=== PATIENT | female | born 1955 | race Caucasian/White ===

== ENCOUNTER 2024-01-22 11:38 | Day surgery (SDC) | payer MEDICARE ==
[2024-01-19 13:35] LABS: BASOPHILS % (AUTO) 0.6 % (0-1); EOSINOPHILS # (AUTO) 0.2 X10'3 (0-0.9); EOSINOPHILS % (AUTO) 2.9 % (0-6); HEMOGLOBIN 12.8 g/dl (12.0-16.0); LYMPHOCYTES # (AUTO) 1.9 X10'3 (1.1-4.8); LYMPHOCYTES % (AUTO) 30.8 % (21-51); MEAN CORPUSCULAR HEMOGLOBIN 32.8 PG (27.0-31.0); MEAN CORPUSCULAR HGB CONC 33.6 g/dL (33.0-36.5); MEAN CORPUSCULAR VOLUME 97.6 FL (78-98); MEAN PLATELET VOLUME 7.7 FL (7.4-10.4); MONOCYTES # (AUTO) 0.7 X10'3 (0-0.9); MONOCYTES % (AUTO) 11.1 % (2-12); NEUTROPHILS # (AUTO) 3.4 X10'3 (1.8-7.7); NEUTROPHILS % (AUTO) 54.6 % (42-75); PLATELET COUNT 241 X10'3 (140-440); RED BLOOD COUNT 3.89 X10'6 (4.20-5.60); RED CELL DISTRIBUTION WIDTH 12.7 % (11.5-14.5); WHITE BLOOD COUNT 6.3 X10'3 (4.5-11.0)
[2024-01-19 13:50] LABS: APTT 30 SECONDS (22-32); PROTHROMBIN TIME 10.1 SECONDS (9.0-12.0)
[2024-01-19 13:52] LABS: ALBUMIN 4.1 G/DL (3.4-5.0); ANION GAP 8 (8-16); BLOOD UREA NITROGEN 8 MG/DL (7-18); BUN/CREATININE RATIO 10.8 (10.0-20.0); CALCIUM 9.4 MG/DL (8.5-10.1); CHLORIDE 100 MMOL/L (99-107); CHOL/HDL RATIO 2.3 (0.00-4.99); CHOLESTEROL 157 MG/DL (0-200); CREATININE 0.74 MG/DL (0.40-0.90); GLUCOSE 86 MG/DL (70-104); HDL CHOLESTEROL 68 MG/DL (35-60); LDL CHOLESTEROL 78 MG/DL (50-100); POTASSIUM 4.4 MMOL/L (3.5-5.1); SODIUM 136 MMOL/L (135-145); TOTAL CARBON DIOXIDE 27.6 MMOL/L (24-32); TRIGLYCERIDES 48 MG/DL (20-135); eGFR 77 ML/MIN
[2024-01-22] VITALS (9 sets, daily range): BP systolic 127–168; BP diastolic 49–108; PULSE 68–79; RESP 14–22; TEMP 99.7; O2SAT 96–98
[~2024-01-22] VITALS: Ht 160 cm; Wt 61.8 kg
[2024-01-22] MEDS ORDERED: normal saline 1,000 ML IV SCH (11:55)
[2024-01-22] MEDS ORDERED: ROSU40TA22 PO (12:14)
[2024-01-22] MEDS ORDERED: LOSA25TA41 PO (12:14)
[2024-01-22] MEDS ORDERED: METO25TA6 PO (12:14)
[2024-01-22] MEDS: diphenhydrAMINE 25mg capsule PO PRN (12:38)
[2024-01-22] MEDS: LORazepam 0.5 MG tablet PO PRN (12:38)
[2024-01-22] MEDS ORDERED: midazolam 1 mg/ML 2ml injection ONE ×2 (13:45→14:30)
[2024-01-22] MEDS ORDERED: heparin 1,000unit/ml 10ml vial 10 ML ONE (13:45)
[2024-01-22] MEDS ORDERED: fentaNYL/PF 50MCG/1 ML 2ML syringe ONE (13:45)
[2024-01-22] MEDS ORDERED: verapamil 2.5 mg/ml inj IV ONE (13:45)
[2024-01-22] MEDS ORDERED: nitroGLYCERIN 500mcg/5mL D5W 5 ML IV ONE (13:46)
[2024-01-22] MEDS ORDERED: iohexol 350MG/ML 100ml bottle IV ONE (13:46)
[2024-01-22] MEDS ORDERED: LIDOcaine 1% (10mg/ml) 2ml vial ONE (13:56)
[2024-01-22] MEDS ORDERED: LIDOcaine 1% 30ml preserv. free vial ONE (14:26)
[2024-01-22 15:22] LABS: ISTAT HGB ART 11.6 g/dl (12.0-16.0); ISTAT Hct ART 34 %PCV (35-45); ISTAT O2 SATURATION ARTERIAL 94 % (95-98); ISTAT SOURCE ART
[2024-01-22] MEDS ORDERED: HYDROcodone/acetaminophen 5mg/325mg tablet PO PRN (15:25)
[2024-01-22] MEDS ORDERED: HYDROcodone/acetaminophen 10/325mg tab PO PRN (15:25)
[2024-01-23 06:31] LABS: ISTAT HGB MIX 12.2 g/dl (12.0-16.0); ISTAT Hct MIX 36 %PCV (35-45); ISTAT O2 SATURATION MIX VENOUS 65 % (60-80); ISTAT SOURCE BLNK
== END 2024-01-22 17:05 | disposition home or self-care (01) ==
LOC: SSTAY O 11:38
PROVIDERS: ATTEND Student in an Organized Health Care Education/Training Program
DX: I35.0 Nonrheumatic aortic (valve) stenosis (principal); I49.3 Ventricular premature depolarization; I10 Essential (primary) hypertension; E78.00 Pure hypercholesterolemia, unspecified; I42.9 Cardiomyopathy, unspecified; Z79.899 Other long term (current) drug therapy
CPT/HCPCS: 36415; 80048; 80061; 82803; 85014; 85025; 85610; 85730; 93005; 93460; 99152; 99153; A6258; A6402; C1751; C1887; C1894; J1644; J2001; J2250; J3010; J3490; J7030; Q0163; Q9967; Z7610; A6449

== ENCOUNTER 2024-02-26 11:19 | Outpatient (CLI) | payer MEDICARE, BC ==
[~2024-02-26 11:19] MED LIST: LOSA25TA41 PO; METO25TA6 PO; ROSU40TA71 PO
[2024-02-26] MEDS ORDERED: IODIXANOL 320 MG/ML INFUS..BTL 100ML IV ONE ×2 (11:48)
[2024-02-26 11:57] LABS: BASOPHILS % (AUTO) 0.6 % (0-1); EOSINOPHILS # (AUTO) 0.1 X10'3 (0-0.9); EOSINOPHILS % (AUTO) 1.7 % (0-6); HEMOGLOBIN 12.5 g/dl (12.0-16.0); LYMPHOCYTES # (AUTO) 1.2 X10'3 (1.1-4.8); LYMPHOCYTES % (AUTO) 20.9 % (21-51); MEAN CORPUSCULAR HEMOGLOBIN 32.5 PG (27.0-31.0); MEAN CORPUSCULAR HGB CONC 33.9 g/dL (33.0-36.5); MEAN CORPUSCULAR VOLUME 95.9 FL (78-98); MEAN PLATELET VOLUME 7.5 FL (7.4-10.4); MONOCYTES # (AUTO) 0.6 X10'3 (0-0.9); MONOCYTES % (AUTO) 10.4 % (2-12); NEUTROPHILS # (AUTO) 3.7 X10'3 (1.8-7.7); NEUTROPHILS % (AUTO) 66.4 % (42-75); PLATELET COUNT 219 X10'3 (140-440); RED BLOOD COUNT 3.86 X10'6 (4.20-5.60); WHITE BLOOD COUNT 5.6 X10'3 (4.5-11.0)
[2024-02-26 12:08] LABS: APTT 30 SECONDS (22-32)
[2024-02-26 12:11] LABS: INR 0.9 INR
[2024-02-26 12:16] LABS: ALANINE AMINOTRANSFERASE 28 U/L (12-78); ALBUMIN 3.8 G/DL (3.4-5.0); ALBUMIN/GLOBULIN RATIO 0.9 (1.1-1.5); ALKALINE PHOSPHATASE 74 IU/L (46-116); ANION GAP 7 (8-16); ASPARTATE AMINO TRANSFERASE 42 U/L (10-37); BILIRUBIN,TOTAL 0.5 MG/DL (0.1-1.0); BLOOD UREA NITROGEN 7 MG/DL (7-18); BUN/CREATININE RATIO 9.9 (10.0-20.0); CALCIUM 8.8 MG/DL (8.5-10.1); CHLORIDE 98 MMOL/L (99-107); CREATININE 0.71 MG/DL (0.40-0.90); GLUCOSE 77 MG/DL (70-104); POTASSIUM 4.6 MMOL/L (3.5-5.1); PRO BRAIN NATRIURETIC PEPTIDE 1214 PG/ML (0-125); SODIUM 132 MMOL/L (135-145); TOTAL CARBON DIOXIDE 27.4 MMOL/L (24-32); TOTAL PROTEIN 7.9 G/DL (6.4-8.2); eGFR 81 ML/MIN
== END 2024-02-26 23:59 | disposition home or self-care (01) ==
LOC: RAD 11:19
PROVIDERS: ATTEND Internal Medicine Cardiovascular Disease
DX: D25.9 Leiomyoma of uterus, unspecified (principal); K40.90 Unilateral inguinal hernia, without obstruction or gangrene, not specified as recurrent; R91.8 Other nonspecific abnormal finding of lung field; I34.81 Nonrheumatic mitral (valve) annulus calcification; I35.0 Nonrheumatic aortic (valve) stenosis; R06.02 Shortness of breath; I65.29 Occlusion and stenosis of unspecified carotid artery
CPT/HCPCS: 36415; 71046; 71275; 74174; 75572; 80053; 83880; 85025; 85610; 85730; Q9967

== ENCOUNTER 2024-04-25 06:05 | Inpatient (IN) | payer MEDICARE, BC ==
[2024-04-17 14:16] LABS: BILIRUBIN,URINE NEGATIVE (Neg); CLARITY,URINE SLIGHTLY CLOUDY (Clear); COLOR,URINE YELLOW (Yellow); GLUCOSE, URINE NEGATIVE (Neg); KETONES,URINE NEGATIVE (Neg); LEUKOCYTE ESTERASE ,URINE NEGATIVE (Neg); NITRITES, URINE NEGATIVE (Neg); OCCULT BLOOD,URINE TRACE-INTACT (Neg); PH,URINE 6.5 (4.8-8.0); PROTEIN,URINE NEGATIVE (Neg); UROBILINOGEN,URINE 0.2 E.U/dL (0.2-1.0)
[2024-04-17 14:16] LABS: BASOPHILS % (AUTO) 0.6 % (0-1); EOSINOPHILS # (AUTO) 0.2 X10'3 (0-0.9); EOSINOPHILS % (AUTO) 3.2 % (0-6); LYMPHOCYTES # (AUTO) 1.6 X10'3 (1.1-4.8); LYMPHOCYTES % (AUTO) 28.7 % (21-51); MEAN CORPUSCULAR HEMOGLOBIN 32.5 PG (27.0-31.0); MEAN CORPUSCULAR HGB CONC 33.5 g/dL (33.0-36.5); MEAN CORPUSCULAR VOLUME 97.3 FL (78-98); MEAN PLATELET VOLUME 7.7 FL (7.4-10.4); MONOCYTES # (AUTO) 0.6 X10'3 (0-0.9); MONOCYTES % (AUTO) 11.6 % (2-12); NEUTROPHILS # (AUTO) 3.1 X10'3 (1.8-7.7); NEUTROPHILS % (AUTO) 55.9 % (42-75); PRE OP HEMATOCRIT 38.7 % (35.0-45.0); PRE OP PLATELET COUNT 259 X10'3 (140-440); PRE OP WHITE BLOOD COUNT 5.5 10'3 (4.8-10.8); RED BLOOD COUNT 3.98 X10'6 (4.20-5.60); RED CELL DISTRIBUTION WIDTH 13.8 % (11.5-14.5)
[2024-04-17 14:21] LABS: SQUAMOUS EPITHELIAL CELL,UR FEW /LPF (FEW); UA COLLECTION TYPE CLN CATCH MIDSTREAM
[2024-04-17 14:22] LABS: BACTERIA,URINE NONE SEEN /HPF (Neg); WBC,URINE 0-4 /HPF (0-4)
[2024-04-17 14:29] LABS: PRE OP PROTIME 10.2 SECONDS (9.0-12.0)
[~2024-04-25] VITALS: Ht 160 cm; Wt 63.6 kg
[2024-04-25] VITALS (41 sets, daily range): BP systolic 108–200; BP diastolic 47–111; PULSE 62–104; RESP 10–22; TEMP 97.1–99.4; O2SAT 82–100
[~2024-04-25 06:05] MED LIST changes: +DOCUMENT DATE & TIME OF BETA-BLOCKER PO ONE; +cefazolin 2gm/D5W 100mL 100 ML IV ONE; +nitroPRUSSIDE (NIPRIDE) (200MCG/ML) 100ML Drip IV SCH; +phenylephrine inj 50 MG in normal saline 250ml IV solN IV SCH; +ringers solution, lacted 1,000 ML IV SCH
[2024-04-25] MEDS ORDERED: protamine sulfate 10mg/ml inj. ONE (06:35)
[2024-04-25] MEDS: famotidine 20mg tablet PO ONE (06:45)
[2024-04-25] MEDS: vancomycin/NS 1 GM in NS 250 ML IV ONE (06:46)
[2024-04-25] MEDS: aspirin 325mg tablet PO ONE (06:47)
[2024-04-25] MEDS: dextrose 5%-lactated ringers 1,000 ML IV SCH (07:26)
[2024-04-25] MEDS ORDERED: proCHLORperazine 10 MG/2 ml inj IV PRN ×2 (07:30→09:50)
[2024-04-25] MEDS ORDERED: ondansetron/PF 4mg/2ml inj IV PRN ×2 (07:30→09:50)
[2024-04-25] MEDS ORDERED: morphine 2 MG/ML inj. syringe IV PRN (07:30)
[2024-04-25] MEDS ORDERED: ringers solution, lacted 1,000 ML IV SCH (07:30)
[2024-04-25] MEDS ORDERED: meperidine/PF 25mg/ml syringe IV PRN ×3 (07:30)
[2024-04-25] MEDS ORDERED: morphine 4 MG/ML inj SYRINge IV PRN (07:30)
[2024-04-25 07:40] LABS: ALANINE AMINOTRANSFERASE 23 U/L (12-78); ALBUMIN 3.8 G/DL (3.4-5.0); ALBUMIN/GLOBULIN RATIO 0.9 (1.1-1.5); ALKALINE PHOSPHATASE 75 IU/L (46-116); ANION GAP 9 (8-16); ASPARTATE AMINO TRANSFERASE 41 U/L (10-37); BILIRUBIN,TOTAL 0.4 MG/DL (0.1-1.0); BLOOD UREA NITROGEN 7 MG/DL (7-18); BUN/CREATININE RATIO 8.8 (10.0-20.0); CALCIUM 8.9 MG/DL (8.5-10.1); CHLORIDE 103 MMOL/L (99-107); GLUCOSE 81 MG/DL (70-104); POTASSIUM 4.3 MMOL/L (3.5-5.1); PRO BRAIN NATRIURETIC PEPTIDE 2026 PG/ML (0-125); SODIUM 138 MMOL/L (135-145); TOTAL CARBON DIOXIDE 25.9 MMOL/L (24-32); TOTAL PROTEIN 7.9 G/DL (6.4-8.2); eCRCL 53 ML/MIN; eGFR 71 ML/MIN
[2024-04-25] MEDS ORDERED: LIDOcaine 1% (10mg/ml) 2ml vial ONE (08:05)
[2024-04-25] MEDS ORDERED: iohexol 350MG/ML 100ml bottle IV ONE (08:12)
[2024-04-25] MEDS ORDERED: heparin 1,000 UNITS/NS 500ml 1,500 ML ONE (08:12)
[2024-04-25] MEDS ORDERED: sevoflurane 250ml liquid IH ONE (08:36)
[2024-04-25] MEDS ORDERED: fentaNYL/PF 50MCG/1 ML 2ML syringe ONE (08:41)
[2024-04-25] MEDS ORDERED: heparin 1,000unit/ml 10ml vial 10 ML ONE (08:49)
[2024-04-25] MEDS ORDERED: propofol inj 20 ML IV ONE (08:49)
[2024-04-25] MEDS ORDERED: ALPRAZolam 0.25mg tablet PO PRN (09:50)
[2024-04-25] MEDS ORDERED: pantoprazole 40mg Tablet.DR PO PRN (09:50)
[2024-04-25] MEDS ORDERED: potassium Cl 40MEQ/1/2NS 520ml 520 ML IV PRN (09:50)
[2024-04-25] MEDS ORDERED: docusate sod 100mg capsule PO PRN (09:50)
[2024-04-25] MEDS ORDERED: magnesium sulf-water 4G/100mL 100 ML IV PRN (09:50)
[2024-04-25] MEDS ORDERED: labetalol 20mg/4ml (5mg/ml) syringe IV PRN (09:50)
[2024-04-25] MEDS ORDERED: potassium Cl 20mEq/100mL bag 100 ML IV PRN (09:50)
[2024-04-25] MEDS ORDERED: HYDROcodone/acetaminophen 5mg/325mg tablet PO PRN (09:50)
[2024-04-25] MEDS ORDERED: potassium CL 10mEq/100ml bag 100 ML IV PRN (09:50)
[2024-04-25] MEDS ORDERED: potassium Cl 20 mEq SR tablet PO PRN (09:50)
[2024-04-25] MEDS ORDERED: magnesium sulf-water 2g/50mL 50 ML IV PRN (09:50)
[2024-04-25] MEDS ORDERED: diphenhydrAMINE 25mg capsule PO PRN (09:50)
[2024-04-25] MEDS ORDERED: potassium Cl 40MEQ/270ML bag 250 ML IV PRN (09:50)
[2024-04-25] MEDS: hydrALAZINE 20mg/ml inj. IV PRN (13:41)
[2024-04-25] MEDS: normal saline 1000ml 1,000 ML IV SCH (13:41)
[2024-04-25] MEDS: ondansetron/PF 4mg/2ml inj IV PRN (14:02)
[2024-04-25] MEDS: acetaminophen 325mg tablet PO PRN (15:00)
[2024-04-25] MEDS: ceFAZolin 1GM/D5W- ADD-VANTAGE 50 ML IV SCH (16:38)
[2024-04-25] MEDS: sod chloride 0.9% 10ml flush syringe IV SCH (16:39)
[2024-04-25] MEDS: metoprolol tartrate 25mg tablet PO SCH (21:41)
[2024-04-25] MEDS: vancomycin/NS 1 GM ADD-VANTAGE 250 ML IV SCH (21:41)
[2024-04-26 02:00] VITALS: BP 140/53; PULSE 84; RESP 17; TEMP 99; O2SAT 98
[2024-04-26 06:00] VITALS: BP 155/65; PULSE 84; RESP 14; TEMP 98; O2SAT 97
[2024-04-26] MEDS: aspirin 81mg tab.chew PO SCH (07:30)
[2024-04-26] MEDS: losartan 25mg tablet PO SCH (07:31)
[2024-04-26] MEDS: ROSUVASTATIN CALCIUM 5 MG TABLET PO SCH (07:32)
[2024-04-26 08:07] LABS: BASOPHILS % (AUTO) 0.1 % (0-1); EOSINOPHILS # (AUTO) 0.2 X10'3 (0-0.9); EOSINOPHILS % (AUTO) 2.6 % (0-6); HEMATOCRIT 29.5 % (35.0-45.0); LYMPHOCYTES % (AUTO) 15.2 % (21-51); MEAN CORPUSCULAR HEMOGLOBIN 33.1 PG (27.0-31.0); MEAN CORPUSCULAR HGB CONC 33.8 g/dL (33.0-36.5); MEAN CORPUSCULAR VOLUME 97.9 FL (78-98); MEAN PLATELET VOLUME 8.5 FL (7.4-10.4); MONOCYTES # (AUTO) 0.6 X10'3 (0-0.9); MONOCYTES % (AUTO) 9.2 % (2-12); NEUTROPHILS % (AUTO) 72.9 % (42-75); PLATELET COUNT 143 X10'3 (140-440); RED BLOOD COUNT 3.01 X10'6 (4.20-5.60); RED CELL DISTRIBUTION WIDTH 13.3 % (11.5-14.5); WHITE BLOOD COUNT 6.8 X10'3 (4.5-11.0)
[2024-04-26 08:32] LABS: ALANINE AMINOTRANSFERASE 22 U/L (12-78); ALBUMIN 2.9 G/DL (3.4-5.0); ALBUMIN/GLOBULIN RATIO 0.9 (1.1-1.5); ALKALINE PHOSPHATASE 52 IU/L (46-116); ANION GAP 7 (8-16); ASPARTATE AMINO TRANSFERASE 44 U/L (10-37); BILIRUBIN,TOTAL 0.7 MG/DL (0.1-1.0); BLOOD UREA NITROGEN 6 MG/DL (7-18); BUN/CREATININE RATIO 7.5 (10.0-20.0); CALCIUM 7.8 MG/DL (8.5-10.1); CHLORIDE 105 MMOL/L (99-107); GLUCOSE 82 MG/DL (70-104); MAGNESIUM 1.9 MG/DL (1.5-2.4); POTASSIUM 3.6 MMOL/L (3.5-5.1); PRO BRAIN NATRIURETIC PEPTIDE 3842 PG/ML (0-125); SODIUM 137 MMOL/L (135-145); TOTAL CARBON DIOXIDE 25.4 MMOL/L (24-32); TOTAL PROTEIN 6.2 G/DL (6.4-8.2); eCRCL 53 ML/MIN; eGFR 71 ML/MIN
[2024-04-26 11:00] VITALS: BP 127/99; PULSE 72; RESP 15; TEMP 97.6; O2SAT 98
[2024-04-26] MEDS ORDERED: ASPI81TA53 PO (15:55)
== END 2024-04-26 16:41 | disposition home or self-care (01) | DRG 266 ==
LOC: PAS IN 06:05 → PCU 3S 12:44
PROVIDERS: ADMIT Internal Medicine Cardiovascular Disease; ATTEND Internal Medicine Cardiovascular Disease
PROC: 027F3ZZ Dilation of Aortic Valve, Percutaneous Approach (ICD-10-PCS; 2024-04-25)
PROC: B41DZZZ Fluoroscopy of Aorta and Bilateral Lower Extremity Arteries (ICD-10-PCS; 2024-04-25)
PROC: 03HY32Z Insertion of Monitoring Device into Upper Artery, Percutaneous Approach (ICD-10-PCS; 2024-04-25)
PROC: 02RF38Z Replacement of Aortic Valve with Zooplastic Tissue, Percutaneous Approach (ICD-10-PCS; principal; 2024-04-25 08:36)
DX: I35.0 Nonrheumatic aortic (valve) stenosis (principal); Z00.6 Encounter for examination for normal comparison and control in clinical research program; I50.33 Acute on chronic diastolic (congestive) heart failure; I11.0 Hypertensive heart disease with heart failure; E78.00 Pure hypercholesterolemia, unspecified; Z79.899 Other long term (current) drug therapy
CPT/HCPCS: 33361; 36415; 71045; 71046; 76937; 80053; 81001; 82948; 83735; 83880; 85025; 85347; 85610; 85730; 86885; 86900; 86901; 86920; 87081; 93005; 93308; A4618; A6258; A6449; C1756; C1760; C1769; C1894; G0378; J0360; J0690; J1644; J2371; J2405; J2704; J2720; J3010; J3370; J3490; J7030; J7040; J7050; J7120; J7121; Q9967

== ENCOUNTER 2025-01-07 09:56 | Emergency (ER) | payer MEDICARE, BC ==
[~2025-01-07] VITALS: Ht 160 cm; Wt 65.5 kg
[~2025-01-07 09:56] MED LIST changes: +ASPI81TA53 PO; -DOCUMENT DATE & TIME OF BETA-BLOCKER PO ONE; -ROSU40TA71 PO; +ROSU40TA89 PO; -cefazolin 2gm/D5W 100mL 100 ML IV ONE; -nitroPRUSSIDE (NIPRIDE) (200MCG/ML) 100ML Drip IV SCH; -phenylephrine inj 50 MG in normal saline 250ml IV solN IV SCH; -ringers solution, lacted 1,000 ML IV SCH
[2025-01-07 09:59] VITALS: BP 217/66; PULSE 70; RESP 18; O2SAT 98
--- NOTE | 2025-01-07 10:42 | Physician Documentation ---
History of Present Illness ~ Chief Complaint: Laceration Stated Complaint: FELL AND HAS A LAC ON RT ARM Time Seen by MD: 10:11 Primary Medical Doctor: Dr. Mehreen HOLLOWAY Patient is seen today with complaints of laceration to the dorsum of her right forearm after she tripped and fell and hit a Pallet for something with her right forearm or possibly some metal wire. Patient admits to pain of her right forearm. She denies any chest pain or shortness of breath or abdominal pain nausea, vomiting coverage. She has no other concern or complaint at this time. Medication Reconciliation Allergies: Coded Allergies: No Known Allergies (Unverified , 01/07/25) Scheduled Aspirin (Children's Aspirin), 81 MG PO Q24H@0830 Losartan Potassium (Losartan Potassium), 1 TAB PO DAILY, (Reported) Metoprolol Tartrate (Metoprolol Tartrate), 1 TAB PO Q12H, (Reported) Rosuvastatin Calcium (Rosuvastatin Calcium), 1 TAB PO DAILY, (Reported) Review of Systems Constitutional: Denies: chills, fever, weakness Eyes: Denies: pain, blurred vision ENT: Denies: ear pain, nose pain, throat pain, mouth pain Respiratory: Denies: cough, shortness of breath Cardiovascular: Denies: chest pain, palpitations Gastrointestinal: Denies: abdominal pain, nausea, vomiting Genitourinary: Denies: burning, dysuria Female Genitalia: Denies: vaginal discharge, pelvic pain Neurological: Denies: headache, dizziness Musculoskeletal: Denies: pain, swelling Integumentary: Denies: rash, lesions Allergic/Immunologic: Denies: hives, itching Hematologic/Lymphatic: Denies: no symptoms reported Psychiatric: Denies: depression, anxiety Physical Exam Vital Signs: Temperature: 97.9, Source: Temporal, Heart Rate: 70, Respiratory Rate: 18, BP: 217/66, Pulse Oximetry: 98, Weight: 65.450 Physical Exam General: Awake and Alert, no acute distress. HEENT: Conjunctiva pink, Sclera clear, Mucus Membranes moist. Neck: Supple without masses and tenderness. Resp: Unlabored. Lungs clear to auscultation bilaterally. Heart: Regular Rate and rhythm, normal S1 and S2 without murmur, rub or gallop. Musculoskeletal: Patient on exam does have a 3 cm laceration to dorsum of right forearm with associated skin tears nearby. There is no active bleeding. Patient is neurovascularly intact distally. Motor function is intact and strength is intact distally. Patient has full strength with extension and flexion of digits and wrist. Extremities: No cyanosis,clubbing or edema. Skin: Warm and Dry. Procedures Laceration/Wound Repair Laceration : Procedure Note Procedure note: 3 cc of 1% lidocaine with epinephrine was used to achieve local anesthesia of the 3 cm laceration of the dorsum of the right forearm. Patient did have wound irrigated with copious amounts of normal saline and iodine. Having running suture using 5-0 Prolene was used to achieve closure. Patient tolerated well. Nonstick dressing and wrap applied over repair site and skin tear. Progress Results/Orders Results/Orders Orders - ANJEL FULTON PAC Forearm,Incl.One Joint (01/07/25 10:02) Completed Orders - ANJEL FULTON PAC Forearm,Incl.One Joint (01/07/25 10:02) Lidocaine 1% W/Epi 1:100,000 (Xylocaine (01/07/25 10:35) Tetanus/Pertuss/Diph Acell/Pf (Boostrix (01/07/25 12:15) Medications Received in ER Medications (Trade) Dose Ordered Sig/Kristina Route PRN Reason Start Time Stop Time Status Last Admin Dose Admin (Boostrix vaccine syringe) 0.5 ml ONCE ONCE IMVAC 01/07/25 12:15 01/07/25 12:16 DC 01/07/25 12:21 0.5 ML Vital Signs 01/07/25 09:59 Temp 97.9 Pulse 70 Resp 18 B/P (MAP) 217/66 Pulse Ox 98 Medical Decision Making Findings Patient is seen today with complaints of laceration to the dorsum of her right forearm after she tripped and fell and hit a Pallet for something with her right forearm or possibly some metal wire. Patient admits to pain of her right forearm. She denies any chest pain or shortness of breath or abdominal pain nausea, vomiting coverage. She has no other concern or complaint at this time. Patient did have running sutures placed by myself today to repair laceration of dorsum of right forearm. Patient tolerated well. Nonstick dressing placed with gauze and wrapped in Coban. Patient will change dressing daily for five days. Patient will keep wound clean and dry. Patient will follow up in 7-10 days for suture removal. Patient will monitor for infection. Return to ED with any worsening, concerning or changing symptoms. Follow up with primary care in 3-5 days if no better as needed sooner. Departure Disposition: 01 HOME / SELF CARE / HOMELESS (ERASED) Impression: Primary Impression: Laceration Additional Impression: Skin tear of right forearm without complication Qualified Codes: S51.811A - Laceration without foreign body of right forearm, initial encounter Condition: Stable Discharge Instructions: Laceration Care, Adult, [id number] Additional Instructions: Patient did have running sutures placed by myself today to repair laceration of dorsum of right forearm. Patient tolerated well. Nonstick dressing placed with gauze and wrapped in Coban. Patient will change dressing daily for five days. Patient will keep wound clean and dry. Patient will follow up in 7-10 days for suture removal. Patient will monitor for infection. Return to ED with any wo rsening, concerning or changing symptoms. Follow up with primary care in 3-5 days if no better as needed sooner. Referrals: NO PRIMARY CARE PROVIDER (PCP) Signature Scribe Signature: No scribe Attestation: No scribe ANJEL FULTON PAC Jan 07, 2025 10:42
--- NOTE | 2025-01-07 10:46 | RADIOLOGY REPORT ---
CLINICAL INDICATION: ARM PAIN TECHNIQUE: 2 right DI FOREARM,INCL.ONE JOINT Comparison: None FINDINGS/IMPRESSION: : There is no evidence of acute fracture or dislocation. Soft tissues are unremarkable.
[2025-01-07] MEDS: LIDOcaine 1% W/epiNEPHrine 1:100,000 20ml vial SQ ONE (10:51)
[2025-01-07] MEDS: TETanus/Pertussis (Acell)/Diphther VAC/PF (Tdap-Adult) 0.5ml syringe IMVAC ONE (12:21)
[2025-01-07 13:02] VITALS: TEMP 97.9
== END 2025-01-07 13:05 | disposition home or self-care (01) ==
LOC: ER 09:57
DX: S51.811A Laceration without foreign body of right forearm, initial encounter (principal); Z79.82 Long term (current) use of aspirin; W01.0XXA Fall on same level from slipping, tripping and stumbling without subsequent striking against object, initial encounter; Y93.89 Activity, other specified; Y92.89 Other specified places as the place of occurrence of the external cause; Y99.8 Other external cause status
CPT/HCPCS: 12002; 73090; 90715; 99284; A6223; A6402; A6449; G0008; J7030; Z7610; 90471

== ENCOUNTER 2025-01-16 12:55 | Emergency (ER) | payer MEDICARE, BC ==
[~2025-01-16] VITALS: Ht 160 cm; Wt 63.8 kg
[2025-01-16 13:18] VITALS: BP 192/65; PULSE 67; RESP 16; TEMP 98.3; O2SAT 99
--- NOTE | 2025-01-16 13:22 | Physician Documentation ---
History of Present Illness ~ Chief Complaint: Suture Removal Stated Complaint: SUTURE REMOVAL Time Seen by MD: 13:24 Primary Medical Doctor: Dr. Verde [facility] This is a 70-year-old female who presents requesting suture removal from a laceration to her right forearm. Patient reports the area has been painful however reports no fever. Tetanus Within 5 Years: No Medication Reconciliation Allergies: Coded Allergies: No Known Allergies (Unverified , 01/16/25) Scheduled Aspirin (Children's Aspirin), 81 MG PO Q24H@0830 Cephalexin*Monohydrate* (Keflex*), 1 CAP PO QID Losartan Potassium (Losartan Potassium), 1 TAB PO DAILY, (Reported) Metoprolol Tartrate (Metoprolol Tartrate), 1 TAB PO Q12H, (Reported) Rosuvastatin Calcium (Rosuvastatin Calcium), 1 TAB PO DAILY, (Reported) Past Medical History Past Medical History: No Pertinent History Review of Systems ROS Request for suture removal as stated above in the HPI, otherwise all systems are reviewed and negative. Physical Exam Vital Signs: Temperature: 98.3, Source: Temporal, Heart Rate: 67, Respiratory Rate: 16, BP: 192/65, Pulse Oximetry: 99, Weight: 63.800 Oxygen Flow Rate: 0 Physical Exam VITALS: Reviewed and as above. GENERAL: Alert, nontoxic appearing, no apparent distress. RESPIRATORY: No increased work of breathing, no respiratory distress, speaking in full clear sentences SKIN: Sutured laceration to right forearm, erythematous and tender to palpation with mild induration surrounding wound Progress Results/Orders Results/Orders Vital Signs 01/16/25 13:18 Temp 98.3 Pulse 67 Resp 16 B/P (MAP) 192/65 Pulse Ox 99 O2 Flow Rate 0 Medical Decision Making Findings This 70-year-old female presented requesting sutures from her forearm, physical exam of the sutured area demonstrates a poorly healing wound with some signs of infection including erythema it tenderness, and localized induration. Due to complicated healing of the wound suture removal was not appropriate at this time and patient will be placed on course of oral antibiotics, patient advised to follow up in three days for re-evaluation for suture removal. Patient is otherwise well-appearing in his reassuring patient reported no fever or other systemic symptoms. Patient is appropriate for outpatient follow up. Patient provided careful return to care precautions which she verbalized understanding of. Differential Dx:Considerations: Include: Cellulitis, Suture removal, Wound deh iscence Departure Disposition: HOME / SELF CARE / HOMELESS Impression: Primary Impression: Wound infection Condition: Improved Additional Instructions: The wound appears to be mildly infected therefore I am placing you on antibiotics, please patent take the antibiotics as prescribed, please return to your choice of medical provider on Monday for wound recheck for re-evaluation of readiness for the sutures to be removed. Please follow up with your primary care provider in the next few days. Please return to the emergency department for any new or worsening concerning symptoms including but not limited to if you develop a fever. Referrals: NO PRIMARY CARE PROVIDER (PCP) Prescriptions Cephalexin*Monohydrate* (Keflex*) 500 Mg Capsule 1 CAP PO QID, #20 CAP Prov: HODAN DAVILA 01/16/25 Education Educated: Patient Educated regarding: diagnosis, treatment, prognosis, need for follow up Signature Scribe Signature: No scribe Attestation: The note accurately reflects work and decisions made by me.CAROLYN Rolon 01/16/25 21:33 HODAN DAVILA Jan 16, 2025 13:22
[2025-01-16] MEDS ORDERED: CEPH-585 PO (13:43)
== END 2025-01-16 13:49 | disposition home or self-care (01) ==
LOC: ER 12:56
DX: S51.811D Laceration without foreign body of right forearm, subsequent encounter (principal); Z79.899 Other long term (current) drug therapy; Z79.82 Long term (current) use of aspirin; X58.XXXD Exposure to other specified factors, subsequent encounter
CPT/HCPCS: 99283; A6222; A6258